=== PATIENT | female | born 1965 | race Caucasian/White ===

== ENCOUNTER 2018-12-28 21:48 | Emergency (ER) | payer MEDICAID ==
--- NOTE | 2018-12-28 22:17 | Emergency Department Record ---
History of Present Illness - General Chief Complaint: Ingestion Stated Complaint: Took extra dose of amlodipine Time Seen by Provider: 12/28/18 21:54 Source: Patient Mode of Arrival: Ambulatory Limitations: No limitations - History of Present Illness Initial Comments: 53 yo female presents to ED for evaluation after accidentally taking a dose of her evening BP medication 13 hours ago this morning. Patient reports that she felt dizzy throughout the day, however reports that she is feeling better this evening. Patient called her PCP who asked that she come to the ED for evaluation of her BP. Patient denies chest pain, difficulty breathing, or near- syncope symptoms. MD Complaint: Other Onset/Timin -: Days(s) Radiation: None Severity: Mild Severity scale (1-10): 1 Consistency: Constant Improves With: Nothing Worsens With: Nothing Associated Symptoms: Other (Lightheadedness) - Related Data Home Medications Medication Instructions Recorded Confirmed Last Taken Benazepril/Hydrochlorothiazide 1 each PO DAILY 12/28/18 12/28/18 1 Day Ago [Benazepril-Hctz 10-12.5 mg Tab] ~12/27/18 Cannabidiol (Cbd) Extract 1 ml PO DAILY 12/28/18 12/28/18 1 Day Ago [Epidiolex] ~12/27/18 Glucosam/Chond/MSM/[place]/Hyal 1 each PO DAILY 12/28/18 12/28/18 1 Day Ago [Glucosamine-Chondr Complex Tab] ~12/27/18 Reuma-Art 12/28/18 1 Day Ago ~12/27/18 Allergies Allergy/AdvReac Type Severity Reaction Status Date / Time hydrocodone bitartrate Allergy DIFFICULTY Verified 12/28/18 22:00 [From Vicodin] BREATHING Sulfa (Sulfonamide Allergy HYPERSENSIT Verified 12/28/18 22:00 Antibiotics) IVITY Travel Screening - Travel/Exposure Within Last 30 Days Have you traveled within the last 30 days?: No - Travel/Exposure Within Last Year Have you traveled outside the [place] in the last year?: No - Additonal Travel Details Have you been exposed to anyone with a communicable illness?: No - Travel Symptoms Symptom Screening: None Review of Systems Constitutional: Denies: Chills, Fever, Malaise, Night sweats Eyes: Denies: Eye discharge, Eye pain ENT: Denies: Congestion, Ear pain, Epistaxis Respiratory: Denies: Cough, Dyspnea Cardiovascular: Denies: Chest pain, Dyspnea on exertion Endocrine: Denies: Fatigue, Heat or cold intolerance Gastrointestinal: Denies: Abdominal pain, Nausea, Vomiting Genitourinary: Denies: Incontinence, Retention Musculoskeletal: Denies: Arthralgia, Back pain Skin: Denies: Bruising, Change in color Neurological: Reports: Vertigo. Denies: Abnormal gait, Confusion, Headache, Seizure Psychiatric: Denies: Anxiety Hematological/Lymphatic: Denies: Anemia, Blood Clots Past Medical History - SOCIAL HISTORY Smoking Status: Never smoker Alcohol Use: None Drug Use: None - RESPIRATORY Hx Respiratory Disorders: Yes Hx Bronchitis: Yes - CARDIOVASCULAR Hx Cardio Disorders: Yes Hx Hypertension: Yes - NEURO Hx Neuro Disorders: No - GI Hx GI Disorders: No - Hx Genitourinary Disorders: No - ENDOCRINE Hx Endocrine Disorders: No - MUSCULOSKELETAL Hx Musculoskeletal Disorders: No - PSYCH Hx Psych Problems: No - HEMATOLOGY/ONCOLOGY Hx Hematology/Oncology Disorders: No Family Medical History Any Significant Family History?: Yes Hx Cancer: Father, Mother Physical Exam - General General Appearance: Alert, Oriented x3, Cooperative, No acute distress, Other (BP 145/94) Limitations: No limitations - Head Head exam: Atraumatic, Normocephalic, Normal inspection Head exam detail: negative: Abrasion, Contusion, Dash's sign, General tenderness, Hematoma, Laceration - Eye Eye exam: Normal appearance. negative: Conjunctival injection, Periorbital swelling, Periorbital tenderness, Scleral icterus - ENT Ear exam: negative: Auricular hematoma, Auricular trauma Nasal Exam: negative: Active bleeding, Discharge, Dried blood, Foreign body Mouth exam: negative: Drooling, Laceration, Muffled voice, Tongue elevation - Neck Neck exam: Normal inspection. negative: Meningismus, Tenderness - Respiratory Respiratory exam: Normal lung sounds bilaterally. negative: Rales, Respiratory distress, Rhonchi, Stridor - Cardiovascular Cardiovascular Exam: Regular rate, Normal rhythm, Normal heart sounds - GI/Abdominal GI/Abdominal exam: Soft. negative: Rebound, Rigid, Tenderness - Rectal Rectal exam: Deferred - exam: Deferred - Extremities Extremities exam: Normal inspection. negative: Pedal edema, Tenderness - Back Back exam: Denies: CVA tenderness (R), CVA tenderness (L) - Neurological Neurological exam: Alert, Normal gait, Oriented X3 - Psychiatric Psychiatric exam: Normal affect, Normal mood - Skin Skin exam: Normal color. negative: Abrasion Type of lesion: negative: abrasion Course Vital Signs 12/28/18 21:57 Temperature 99.0 F Pulse Rate [ 82 Left] Respiratory 18 Rate Blood Pressure 145/94 [Left Arm] Pulse Ox 97 - Reevaluation(s) Reevaluation #1: 12/28/18 22:26 Patient was seen and examined BP 145/94 at this time, patient feels at her baseline. Patient was instructed to rest this evening, may resume her normal medication dosing tomorrow evening. Patient appears stable for discharge at this time. Disposition Disposition: Discharge Clinical Impression: Accidental drug ingestion Qualifiers: Encounter type: initial encounter Qualified Code(s): T50.901A - Poisoning by unspecified drugs, medicaments and biological substances, accidental (unintentional), initial encounter Disposition: Home, Self-Care Condition: (2) Stable Instructions: Adult Overdose (ED) Additional Instructions: Return to ED if your symptoms worsen or if you have any concerns. Resume your medication tomorrow evening as prescribed. Follow-up with your family doctor in 3-5 days as directed. Forms: Patient Portal Access Time of Disposition: 22:17 Quality - Quality Measures Quality Measures: N/A - Blood Pressure Screening Does Patient Have Any of the Following: Active Dx of HTN Blood Pressure Classification: Hypertensive Reading Systolic Measurement: 145 Diastolic Measurement: 94 Screening for High Blood Pressure: Patient Exclusion, Hx of HTN [[id number]]
== END 2018-12-28 22:27 | disposition home or self-care (01) ==
LOC: ER 21:48
DX: T46.2X1A Poisoning by other antidysrhythmic drugs, accidental (unintentional), initial encounter (principal); R42 Dizziness and giddiness
CPT/HCPCS: 99282